=== PATIENT | male | born 1965 | race Caucasian/White ===

== ENCOUNTER 2016-08-28 23:15 | Emergency (ER) | payer BC ==
[2016-08-28 23:31] VITALS: BP 159/82
[2016-08-28] MEDS ORDERED: METHYLPREDNISOLONE ACETATE 80 MG/ML VIAL IM ONE (23:48)
[2016-08-28] MEDS ORDERED: DEXAMETHASONE SOD PHOSPHATE 10 MG/ML VIAL IM ONE (23:48)
[2016-08-28] MEDS ORDERED: DEXAMETHASONE SOD PHOSPHATE 10 MG/ML VIAL ONE (23:56)
[2016-08-28] MEDS ORDERED: METHYLPREDNISOLONE SOD SUCC/PF 40 MG/ML VIAL ONE (23:57)
[2016-08-29] MEDS ORDERED: METHYLPREDNISOLONE ACETATE 80 MG/ML VIAL ONE
--- NOTE | 2016-08-29 00:12 | ERNOTE ---
Lower Extremity HPI - General Lower Extremities Pain: hip: left, leg: left, knee: left, thigh: left, ankle: left - pain for the past 2 days Time Seen by Provider: 08/28/16 23:34 Source: patient, family Exam Limitations: no limitations - Immun/Allergies/Home Medications Immunizations: IMMUNIZATION HX Immunizations Up to Date Yes History of Influenza Vaccine Yes Hx Pneumococcal Vaccination No Allergies/Adverse Reactions: Allergies Allergy/AdvReac Type Severity Reaction Status Date / Time No Known Allergies Allergy Verified 02/16/13 11:18 Home Medications: HOME MEDICATIONS Ibuprofen 400 mg PO QID PRN 02/16/13 [Last Taken Unknown] Methylprednisolone [Medrol Dosepak] 4 mg PO DAILY #21 tab.ds.pk 08/28/16 [Last Taken Unknown] - History of Present Illness Narrative: Pt states he has had pain in his leg and tonight he tried to get out of bed and had a muscle spasm in his left calf then got a spasm in his back from leaning over to rub his calf. Occurred: just prior to arrival Method of Injury: Reports: no apparent injury Modifying Factors - (Improves): Denies: pain medication Modifying Factors - (Worsens): Reports: immobilization Review of Systems - Review of Systems Constitutional: Absent: recent illness EYE: Present: no symptoms reported ENT: Present: no symptoms reported Respiratory: Present: no symptoms reported Cardiology: Present: no symptoms reported Gastrointestinal/Abdominal: Present: no symptoms reported Genitourinary: Absent: frequency, dysuria Musculoskeletal: Present: See HPI, back pain - on the left side in "twinges" Skin: Absent: rash, change in color Neurological: Absent: weakness, numbness, tingling Endocrine: Present: no symptoms reported Hematologic/Lymphatic: Present: no symptoms reported Psych: Present: no symptoms reported - Patient's Past Medical History Patient History - Medical: Diabetes Type 2, Hypothyroidism, Renal Disease Patient History - Cardiac/Respiratory: No pertinent hx Patient History - Cancer: Kidney Patient History - Surgical Procedures: T & A Patient History - Other: None - Social History Living Situations: spouse Abuse History: No History of abuse Psych History: No pertinent hx Smoking Status: Never smoker Have you smoked in the past 12 months: No Do you dip or chew tobacco: No Patient requests Smoking Cessation Consult: No Initiate information on Smoking Cessation: No Alcohol Use: none Drug Use: none - Immunizations Immunizations Up to Date: Yes Hx Pneumococcal Vaccination: No History of Influenza Vaccine: Yes Physical Exam - Physical Exam General Appearance: Present: wd/wn, alert, mild distress Respiratory: Present: no respiratory distress, no accessory muscle use Back Exam: Present: normal inspection, no CVA tenderness, no vertebral tenderness Extremity Exam: Present: other - some tenderness to deep palpation of the left lower leg, no edema. Neurological Exam: Present: alert, oriented, normal mood/affect, no motor/ sensory deficits Skin Exam: Present: warm/dry, other - chronic skin changes of the lower legs, no erythema rash ED Progress - Vital Signs Patient's Vital Signs:: I have reviewed the patient's vital signs. Vital Signs: Vital Signs 08/28/16 23:16 Temperature 35.4 C L Pulse Rate 86 Respiratory 18 Rate Blood Pressure 159/82 O2 Sat by Pulse 98 Oximetry - Progress/Reassessment Chief Complaint: Lower Extremity Pain/ Injury Departure Clinical Impression: Lumbar radiculitis - Departure Disposition: Home self-care Condition: Good Instructions: Lumbosacral Radiculopathy Referrals: Luke Benitez MD [Primary Care Provider] - Prescriptions: Methylprednisolone [Medrol Dosepak] 4 mg PO DAILY #21 tab.ds.pk
== END 2016-08-29 00:06 | disposition home or self-care (01) ==
LOC: ER 23:15
DX: M54.16 Radiculopathy, lumbar region (principal)

== ENCOUNTER 2017-01-03 21:02 | Emergency (ER) | payer BC ==
[2017-01-03] MEDS ORDERED: METHYLPREDNISOLONE SOD SUCC/PF 40 MG/ML VIAL IM ONE (21:59)
[2017-01-03] MEDS ORDERED: ALBUTEROL SULFATE/IPRATROPIUM 3 ML NEBU IH ONE ×4 (21:59→22:53)
[2017-01-03] MEDS ORDERED: METHYLPREDNISOLONE SOD SUCC/PF 125 MG/2 ML VIAL IM ONE ×2 (22:02→22:04)
[2017-01-03] MEDS ORDERED: METHYLPREDNISOLONE SOD SUCC/PF 125 MG/2 ML VIAL ONE (22:02)
--- OUTSIDE RECORDS SUMMARY | 2017-01-03 22:17 | XMS REPORT | Continuity of Care Document ---
:1965 Author Organization [facility] ([facility]) Address [address] [place] [address] Phone [phone] Care Team Providers Name Role Phone Luke Lauren Primary Care Provider [phone] Source Comments This disclosure is being made pursuant to the Care Everywhere program, applicable federal and state laws, and may not contain all informaitonavailable regarding this patient.[facility] ([facility]) Active Allergies and Adverse Reactions Allergen Noted Date Severity Reactions Comments Coconut 04/14/2013 Pruritus Current Medications Prescription Sig. Disp. Refills Start Date End Date Status metFORMIN 500 mg XR Take 1,000 mg by Active tablet mouth 2 times daily. simvastatin 40 mg tablet Take 40 mg by mouth Active every evening. levothyroxine 25 mcg Take 25 mcg by Active tablet mouth every morning before breakfast. aspirin 81 mg EC tablet Take 162 mg by Active mouth daily. phentermine 37.5 mg Take 37.5 mg by Active capsule mouth every morning after breakfast. Take 2 hours after breakfast. topiramate 25 mg tablet Take 25 mg by mouth Active 2 times daily. 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 Former smoker 03/18/2013 Occupational exposure to chemicals 03/18/2013 Edema of the tongue 03/18/2013 Postoperative anemia due to acute blood loss 03/18/2013 Right renal mass 03/15/2013 Obesity, morbid (more than 100 lbs over ideal weight or BMI > 40) 03/01/2013 Most Recent Encounters Date Type Specialty Providers Description 12/11/2016 Office Visit Urology Oncology Brown Rockwell MD Subj: Upcoming Appt Reminder 11/06/2016 Office Visit Urology Oncology Brown Rockwell MD Subj: Upcoming Appt Reminder Social History Tobacco Use Types Packs/Day Years Used Date Former Smoker Cigarettes 1.5 Quit: 03/16/2009 Smokeless Tobacco: Never Used Comments:quit in 2008 Alcohol Use Drinks/Week oz/Week Comments No Last Filed Vital Signs Vital Sign Reading Time Taken Blood Pressure 142/70 05/08/2016 3:33 PM CDT Pulse 81 05/08/2016 3:33 PM CDT Temperature 36.7 C (98.1 F) 05/08/2016 3:30 PM CDT Respiratory Rate 18 04/30/2016 7:52 AM CDT Height 1.765 m (5' 9.49") 10/31/2015 7:05 AM CDT Weight 177.6 kg (391 lb 8.6 oz) 05/08/2016 3:30 PM CDT Body Mass Index 57.01 05/08/2016 3:30 PM CDT Oxygen Saturation 97% 05/08/2016 3:33 PM CDT Plan of Care Date Type Specialty Providers Description 01/23/2017 Appointment Radiology Subj: Appointment Rescheduled 01/23/2017 Appointment Urology Brown Rockwell MD Subj: Appointment [address] [place] [address] [phone] (Fax) Health Maintenance Due Date Last Done Comments Hepatitis B Vaccine (1 of 3 1965 - Primary Series) Tdap Vaccine 1976 MMR Vaccine 10/30/1983 Td Vaccine 10/30/1983 Pneumococcal Vaccine (1 of 3 1984 - PCV13) Colonoscopy 2015 Prostate Cancer Screening 10/30/2015 Influenza Vaccine: Seasonal 02/24/2017 (Season Ended) Lipid Disorder Screening 03/23/2019 03/23/2014, Additional history exists 02/09/2014, 12/29/2013 Results from Last 3 Months Not on file
--- NOTE | 2017-01-03 22:40 | ERNOTE ---
<Arcenio Bonilla - Last Filed: 01/03/17 22:57> Date of Service: 01/03/17 Time Seen by Provider: 01/03/17 21:56 Stated Complaint: SOB, SORE THROAT, STUFFY NOSE Presenting Symptoms:: cough, sore throat, fever Source: patient Exam Limitations: no limitations Immunizations: IMMUNIZATION HX Immunizations Up to Date Yes History of Influenza Vaccine Yes Hx Pneumococcal Vaccination No Allergies/Adverse Reactions: Allergies No Known Allergies Allergy (Verified 01/03/17 21:40) Home Medications: HOME MEDICATIONS Ibuprofen 400 mg PO QID PRN 02/16/13 [Last Taken Unknown] Methylprednisolone [Medrol Dosepak] 4 mg PO DAILY #21 tab.ds.pk 08/28/16 [Last Taken Unknown] Ipratropium/Albuterol Sulfate [Combivent Respimat Inhal Closplint] 1 puff IH QID #1 inhaler 01/03/17 [Last Taken Unknown] Levofloxacin [Levaquin] 500 mg PO DAILY #7 tablet 01/03/17 [Last Taken Unknown] - History of Present Ilness Narrative: 51-year-old male presents to the emergency room for increased shortness of breath cough and sore throat. States that this has started about 2 weeks ago. Patient states it has gradually worsened as has been sick since Date (Duration): 01/03/17 Timing: getting worse Severity: moderate Frequency/Possible Cause: Reports: no prior episodes Modifying Factors - Improves: Reports: nothing Modifying Factors - Worsens: Reports: activity, coughing Associated Symptoms: Reports: cough, shortness of breath, wheezing, sore throat. Denies: facial pain, nasal congestion, nasal drainage, earache, headache, muscle aches, fever/chills Review of Systems - Review of Systems Constitutional: Present: See HPI, fatigue, malaise EYE: Present: no symptoms reported ENT: Present: See HPI Respiratory: Present: See HPI, shortness of breath, cough, wheezing Cardiology: Present: no symptoms reported Gastrointestinal/Abdominal: Present: no symptoms reported Genitourinary: Present: no symptoms reported Musculoskeletal: Present: no symptoms reported Skin: Present: no symptoms reported Neurological: Present: no symptoms reported Endocrine: Present: no symptoms reported Hematologic/Lymphatic: Present: no symptoms reported Psych: Present: no symptoms reported - Patient's Past Medical History Patient History - Medical: Diabetes Type 2, Hypothyroidism, Obesity, Renal Disease Patient History - Cardiac/Respiratory: No pertinent hx, Hyperlipidemia Patient History - Cancer: Kidney Patient History - Surgical Procedures: Back Surgery, T & A Patient History - Other: None - Social History Living Situations: home Abuse History: No History of abuse Psych History: No pertinent hx Smoking Status: Former smoker Alcohol Use: none Drug Use: none - Immunizations Immunizations Up to Date: Yes Hx Pneumococcal Vaccination: No History of Influenza Vaccine: Yes Physical Exam - Physical Exam General Appearance: Present: wd/wn, alert, mild distress Eye Exam: Normal inspection: bilateral Ears, Nose, Throat: Present: pharyngeal erythema Neck: Present: normal inspection, nontender Respiratory: Present: chest nontender, decreased breath sounds, rales, rhonchi, wheezing Cardiovascular/Chest: Present: regular rate, rhythm, no murmur, normal peripheral pulses Gastrointestinal/Abdominal: Present: nontender, soft Back Exam: Present: normal inspection, no CVA tenderness Extremity Exam: Present: normal inspection, pedal edema Neurological Exam: Present: alert, oriented, normal mood/affect, no motor/ sensory deficits Skin Exam: Present: normal color, warm/dry Lymphatic Exam: Present: no adenopathy ED Progress - Results and Orders Patient's Lab Results:: I have reviewed the patient's lab results. Results and Orders: negative strep - Vital Signs Vital Signs: Vital Signs 01/03/17 01/03/17 21:33 22:08 Temperature 37 C Pulse Rate 94 94 Respiratory 22 H 24 H Rate Blood Pressure 167/81 O2 Sat by Pulse 92 89 L Oximetry - Progress/Reassessment Chief Complaint: Upper Respiratory Symptoms Progress:: Unchanged - Transfer of Care Physician Sign Out: Arcenio Bonilla Brief History: sob, cough x 2 weeks Receiving Physician: Seth Augustine Pending Results: X-ray results Expected Disposition: Discharge Departure - Departure Clinical Impression: URI (upper respiratory infection) Condition: Fair Instructions: Upper Respiratory Infection, Adult, [id number] Additional Instructions: Use inhaler as directed Take antibiotics as directed Follow up with PCP Referrals: Luke Benitez MD [Primary Care Provider] - Prescriptions: Ipratropium/Albuterol Sulfate [Combivent Respimat Inhal Closplint] 1 puff IH QID #1 inhaler Levofloxacin [Levaquin] 500 mg PO DAILY #7 tablet <Seth Augustine - Last Filed: 01/03/17 23:46> Immunizations: IMMUNIZATION HX Immunizations Up to Date Yes History of Influenza Vaccine Yes Hx Pneumococcal Vaccination No ED Progress - Vital Signs Vital Signs: Vital Signs 01/03/17 01/03/17 21:33 22:08 Temperature 37 C Pulse Rate 94 94 Respiratory 22 H 24 H Rate Blood Pressure 167/81 O2 Sat by Pulse 92 89 L Oximetry - X-Ray X-Ray #1 X-Ray: chest - Compared to 02/16/2017 increased bilateral lower lobe interstitial markings - Progress/Reassessment Progress:: Improved - Patient notes his breathing at rest is some better. He has not worked since August due to worker comp issues. I doubt he will obtain any Rx's Plan - Plan Plan: Home Inhaler Antibiotic coverage Follow up with PCP
[2017-01-03 22:51] LABS: Hematocrit 38.9 % (42.0-52.0); Hemoglobin 12.3 gm/dL (13.5-18.0); Mean Cell Volume 86.6 fl (78-100); Mean Corpuscular Hemoglobin 27.4 pg (27-31); Mean Corpuscular Hgb Conc 31.6 g/dl (32-36); Mean Platelet Volume 12.6 fl (6.0-9.5); Neutrophil # 6.9 K/mm3 (1.3-6.0); Neutrophil % 72.4 % (42-75.0); Platelet Count 89 K/mm3 (150-450); Red Blood Count 4.49 M/mm3 (4.7-6.0); Red Cell Distribution Width 14.5 % (11.5-14.0); White Blood Count 9.5 K/mm3 (4.0-10.5)
[2017-01-03 23:05] LABS: Albumin * 3.1 gm/dl (3.4-5.0); Anion Gap 11.3 mmol/L (6.8-13.8); BUN/Creatinine Ratio 13.4 (9.0-21.6); Bilirubin, Total 0.2 mg/dL (0.0-1.1); Ca. Corrected For Albumin 9.5 mg/dL (8.4-10.2); Calcium * 9.1 mg/dL (7.9-10.9); Carbon Dioxide 30.9 mmol/L (24-32.6); Potassium 4.2 mmol/L (3.4-4.6); Total Protein 7.8 gm/dL (6.2-8.2)
[2017-01-04 00:38] VITALS: BP 149/85
== END 2017-01-03 23:55 | disposition home or self-care (01) ==
LOC: ER 21:02
DX: J06.9 Acute upper respiratory infection, unspecified (principal); Z85.528 Personal history of other malignant neoplasm of kidney